=== PATIENT | female | born 1940 | race Caucasian/White ===

== ENCOUNTER → 2023-06-27 11:45 | Outpatient (REF) | payer OTHER, SELFPAY | LOC: HWRAD 11:45 | PROVIDERS: ATTENDING PHYSICIAN Otolaryngology Plastic Surgery within the Head & Neck; FAMILY PHYSICIAN Family Medicine; OTHER PHYSICIAN Physician Assistant; REFERRING PHYSICIAN Otolaryngology | DX: J32.4 Chronic pansinusitis (principal) | CPT/HCPCS: 70486 ==

== ENCOUNTER 2025-02-18 07:50 | Emergency (ER) | payer OTHER, SELFPAY ==
[2025-02-18] VITALS (24 sets, daily range): BP systolic 122–220; BP diastolic 48–136; BMI 22.4
--- NOTE | 2025-02-18 08:16 | ED.GENMED ---
History of Present Illness
<Yasir Frias PA-C - Last Filed: 02/18/25 14:02>
General
Chief Complaint: Headache
Source: patient and family
Time Seen by Provider: 02/18/25 07:53
History of Present Illness
History of Present Illness:
84-year-old female with past medical history of hypertension, hyperlipidemia and migraines presenting to the ER for evaluation for what she states is a moderate to severe posterior headache, started approximately 1 hour prior to arrival to the
emergency department, constant throbbing sensation that started after she had already awoken and was getting ready to go on a walk outside. Patient states this did cause her to have 1 episode of nonbloody nonbilious emesis and mild nausea, patient
was having a bowel movement at the time of the onset. She notes she has a history of migraines but states this is very different than her typical migraine headache. She denies any use of anticoagulants. Denies any falls or traumatic injuries, no
focal weakness or numbness.
Past History
<Yasir Frias PA-C - Last Filed: 02/18/25 14:02>
Past History
ED Past Medical History: GERD, HTN, Hypercholesterolemia and Other (IBS, hiatal hernia)
ED Past Surgical History: Other (Rhinoplasty, chin implant)
Social History
Tobacco: Non-smoker
Alcohol: None
Drug: None
Personal:
Living: with family
Employment: Retired
Family History
Family History: Other (Noncontributory)
Review of Systems
<Yasir Frias PA-C - Last Filed: 02/18/25 14:02>
Review of Systems
All Other Systems: ROS reviewed and negative except as documented in HPI and ROS
Phy Exam
<Yasir Frias PA-C - Last Filed: 02/18/25 14:02>
Physical Exam
Physical Exam:
GENERAL: Alert , in no apparent distress but does appear mildly uncomfortable
HEAD: Normocephalic atraumatic
EYE: conjunctiva clear
NECK: Supple, no meningismus
ENT: o/p clr, mmm.
CARDIAC: Regular rate and rhythm
LUNGS: Clear breath sounds bilaterally, no acute respiratory distress, no wheezes/rales/rhonchi
NEUROLOGICAL: Alert and oriented x 3, answering questions appropriately, moves all extremities, no focal weakness or numbness appreciated. No dysmetria or dysarthria, no aphasia
SKIN: Warm and dry, skin intact.
MUSCULOSKELETAL: well perfused.
PSYCH: Normal and appropriate interaction.
Scores
<Yasir Frias PA-C - Last Filed: 02/18/25 14:02>
NIH Stroke Score
Level of Consciousness: 0 - Alert
LOC Questions: 0-Answers both correctly
LOC Commands: 0-Performs both correctly
Best Horizontal Gaze: 0-Normal
Visual Power: 0=Normal, no visual loss
Facial Palsy: 0=Normal, symmetrical
Motor - Right Arm: 0=No drift 10 seconds
Motor - Left Arm: 0=No drift 10 seconds
Motor - Right Le-No drift 5 seconds
Motor - Left Le-No drift 5 seconds
Limb Ataxia: 0-Absent
Sensation: 0-Normal
Best Language: 0-No aphasia
Dysarthria: 0-Normal
Extinction and Inattention: 0-No abnormality
NIH Total Score:: 0
Heart Failure Risk
Heart Failure Risk Score: Not Applicable
Heart Score for Chest Pain Patients
STEMI patient?: Not applicable
Withdrawal Assessment of Alcohol
Withdrawal Assessment Completed?: Not applicable
Course
<Yasir Frias PA-C - Last Filed: 02/18/25 14:02>
Orders/Labs/Results
Orders:
Orders
02/18/25 07:57
CT Head & Neck Angio W/wo IV Urgent
Comment:
Reason For Exam: sudden onset posterior headache
02/18/25 07:59
Basic Metabolic Panel Urgent
Complete Blood Count/With Diff Urgent
PTT Urgent
Prothrombin Time Urgent
02/18/25 08:15
Nicardipine 40 mg/200 ml [Cardene] 40 mg in 200 ml IV PER PROTOCOL
Initial dose in mg/hr, then titrate:: 2.5
Titrate to keep:: SBP 140 - 160 mmHg
Titrate by mg/hr:: 2.5 mg/hr
Frequency of titrations (minutes):: 5-15 minutes
Maximum dose in mg/hr:: 15
Begin to taper infusion when:: Remained at goal for 2hrs
Taper by mg/hr:: 2.5 mg/hr
Frequency of taper (minutes) if patient maintains goal:: every 15-30 minutes
Taper to off?: Yes
If infusion off & no longer maintaining goal:: Contact Provider
02/18/25 09:04
Fentanyl Citrate/Pf [Sublimaze] 50 mcg IV NOW STA
02/18/25 09:13
diazePAM [Valium Injection] 5 mg IV NOW STA
Abnormal Lab Results
02/18/25
07:59
MCHC 32.9 L g/dL
(33.0-37.0)
MPV 11.3 H fL
(7.4-10.4)
Chloride 110 H mmol/L
(98-107)
BUN 27 H mg/dl
(7-17)
Creatinine 1.2 H mg/dL
(0.6-1.0)
Glucose 132 H mg/dl
(70-99)
02/18/25 07:59
02/18/25 07:59
Vital Signs
Initial and Last Documented VS:
Initial Vital Signs
Temp Pulse Resp BP Pulse Ox
97.6 F 72 16 211/78 97
02/18/25 07:52 02/18/25 07:52 02/18/25 07:52 02/18/25 07:52 02/18/25 07:52
Last Documented Vital Signs
Temp Pulse Resp BP Pulse Ox
97.6 F 80 16 145/53 99
02/18/25 07:52 02/18/25 09:55 02/18/25 09:55 02/18/25 09:55 02/18/25 09:55
<Alvaro Abraham, DO - Last Filed: 02/18/25 08:22>
Orders/Labs/Results
Orders:
Orders
02/18/25 07:57
CT Head & Neck Angio W/wo IV Urgent
Comment:
Reason For Exam: sudden onset posterior headache
02/18/25 07:59
Basic Metabolic Panel Urgent
Complete Blood Count/With Diff Urgent
PTT Urgent
Prothrombin Time Urgent
02/18/25 08:15
Nicardipine 40 mg/200 ml [Cardene] 40 mg in 200 ml IV PER PROTOCOL
Initial dose in mg/hr, then titrate:: 2.5
Titrate to keep:: SBP 140 - 160 mmHg
Titrate by mg/hr:: 2.5 mg/hr
Frequency of titrations (minutes):: 5-15 minutes
Maximum dose in mg/hr:: 15
Begin to taper infusion when:: Remained at goal for 2hrs
Taper by mg/hr:: 2.5 mg/hr
Frequency of taper (minutes) if patient maintains goal:: every 15-30 minutes
Taper to off?: Yes
If infusion off & no longer maintaining goal:: Contact Provider
02/18/25 09:04
Fentanyl Citrate/Pf [Sublimaze] 50 mcg IV NOW STA
02/18/25 09:13
diazePAM [Valium Injection] 5 mg IV NOW STA
Abnormal Lab Results
02/18/25
07:59
MCHC 32.9 L g/dL
(33.0-37.0)
MPV 11.3 H fL
(7.4-10.4)
Chloride 110 H mmol/L
(98-107)
BUN 27 H mg/dl
(7-17)
Creatinine 1.2 H mg/dL
(0.6-1.0)
Glucose 132 H mg/dl
(70-99)
02/18/25 07:59
02/18/25 07:59
Vital Signs
Initial and Last Documented VS:
Initial Vital Signs
Temp Pulse Resp BP Pulse Ox
97.6 F 72 16 211/78 97
02/18/25 07:52 02/18/25 07:52 02/18/25 07:52 02/18/25 07:52 02/18/25 07:52
Last Documented Vital Signs
Temp Pulse Resp BP Pulse Ox
97.6 F 80 16 145/53 99
02/18/25 07:52 02/18/25 09:55 02/18/25 09:55 02/18/25 09:55 02/18/25 09:55
<Yasir Frias PA-C - Last Filed: 02/18/25 14:02>
MDM/Problems Addressed
Differential Diagnosis Includes:
Subarachnoid hemorrhage
Subdural hemorrhage
Migraine headache
Tension headache
Malignancy
Meningitis
Hypertension
MDM/Problems Addressed:
84-year-old female presenting to the emergency department for evaluation of a rather sudden onset headache accompanied with 1 episode of nonbloody nonbilious emesis, currently no nausea. Found to be significantly hypertensive, no focal neurologic
deficits on exam. Given description of headache combined with age and significantly elevated blood pressure a stat CT of the head as well as CTA head and neck were ordered. I did not call a stroke alert given patient's NIH score is 0 and she is
without any focal or lateralizing symptoms but did contact CT scan to bring patient over for stat CT imaging given my degree of concern for intracranial bleeding. I did accompany the patient to CT scan which did seem to show findings concerning for
subarachnoid hemorrhage. Radiologist notified as well. Plan to transfer to tertiary facility for further care.
<Yasir Frias PA-C - Last Filed: 02/18/25 14:02>
*Radiology
Radiology exam reviewed: preliminary read by ED provider and radiology read reviewed
*Pulse Oximetry
SaO2: 97
Oxygen Mode of Delivery: Room air
Patient hypoxic: no
*Academic Intern Interpretation
Rate: normal
Heart Rate: 87
Rhythm: sinus
*Critical Care Note
Total Time (30-74mins, 75-104mins- exclusive of procedures): 34
comment:
Critical care statement: A total of 34 minutes of critical care time was provided for this patient. This includes management of unstable vital signs, evaluation of the patient at bedside, reviewing the patient's pertinent medical records, discussion
with consultants, review of old EKGs and review of pertinent medical records. This time with separate from time utilized to perform the aforementioned documented procedures
<Yasir Frias PA-C - Last Filed: 02/18/25 14:02>
Patient Management
Discussion with other providers: Crumb Packer and Radiologist
Escalation/DeEscalation of care consider admission/obs:
Radiology team confirms concern for subarachnoid hemorrhage. I spoke to neurosurgery and the neuro ICU at [facility], Dr. Martin, accepts patient in transfer. Nicardipine drip ordered, keep systolic blood pressure less
than 140. Patient declining anything for headache/pain or nausea at this time. Awaiting transfer team arrival
ED Attending Note
<Yasir Frias PA-C - Last Filed: 02/18/25 14:02>
-
Portions of this chart may have been created with voice recognition software.� Occasional wrong word or��sound alike� substitutions may have occurred due to the inherent limitations of voice recognition software.
<Alvaro Abraham, DO - Last Filed: 02/18/25 08:22>
ED Attending Note
Patient seen and examined by attending physician: Yes
I performed the substantive portion of visit, reviewed & personally made and approve the management plan that is documented in note by myself or SHARRON.: Yes
ED Attending Note:
I agree with José's note
Patient presents for evaluation after developing a headache which is severe about 1 hour ago. Patient denies any focal weakness numbness or tingling. She does not take any aspirin nor does she take any oral anticoagulants.
General: Awake, Alert, Oriented X3. Appears uncomfortable
Vitals: unremarkable
Head: Atraumatic
Eyes: Pupils equal, EOMI
Throat: Airway intact, no exudates
Neck: Trachea midline
Lungs: Clear and equal b/l
Heart: Regular rate, no murmurs
Abd: Soft, Nontender, No pulsatile mass
Neuro: Cranial nerves intact, muscle strength equal bilaterally, cerebellar exam normal
Skin: Warm, dry, no rash
Extremities: pulses equal b/l, no edema
Patient presents with sudden onset severe headache. CT shows subarachnoid hemorrhage. Blood pressure significantly elevated. Nicardipine drip ordered. Meds speaking to the transfer center to arrange transfer to [place].
Discharge Plan
Departure
Patient Disposition: Acute Care Hospital
Date of Disposition: 02/18/25
Time of Disposition: 08:22
Patient with high blood pressure during this ER visit?: Yes
Discharge Problem:
Subarachnoid hemorrhage
Prescriptions:
No Action
latanoprost 0.005 % Drops
1 drp BOTH EYES HS
polyethylene glycol 3350 [Miralax] 17 gram Powder In Packet
17 g PO DAILYPRN PRN (Reason: CONSTIPATION)
cyanocobalamin (vitamin B-12) 1,000 mcg Tablet
1,000 mcg PO DAILY
gabapentin 300 mg Capsule
300 mg PO HS
verapamil 240 mg Tablet Extended Release
240 mg PO DAILY
gabapentin 100 mg Capsule
100 mg PO DAILY
gabapentin 100 mg Capsule
200 mg PO DAILY@1200
losartan 100 mg Tablet
100 mg PO DAILY
cholecalciferol (vitamin D3) [Vitamin D3] 25 mcg (1,000 unit) Tablet
25 mcg PO DAILY
Visbiome 112.5 billion cell Capsule
1 cap PO DAILY
Referrals:
Galdino Resendez MD [Family Provider, Family Practice]
Hospital Transfer
Other hospital: [facility]
I certify that the patient requires transfer: Yes
Discussed case with accepting physician: Dr. Martin
Reason for transfer: higher level of care, medical necessity and specialties available
Interventions
Interventions:
*Risk Screen - Suicide Last Done: 02/18/25 07:52
*General Assessment Last Done: 02/18/25 07:52
*Neglect/Abuse Screening Last Done: 02/18/25 07:52
*ED- Fall Risk Assessment Last Done: 02/18/25 08:23
*ED COVID-19 Vaccine History Last Done: 02/18/25 08:23
*ED Influenza Vaccine History Last Done: 02/18/25 07:52
*Nursing Disposition Last Done: 02/18/25 10:00
ED- Neurological Assessment Last Done: 02/18/25 08:23
Discharge Date and Time
Discharge Date/Time: 02/18/25 10:00
Print Language: CROATIAN
[2025-02-18 08:18] LABS: Hematocrit 39.5 % (37.0-47.0); Hemoglobin 13.0 g/dL (12.0-16.0); Mean Corp Hgb Conc. 32.9 g/dL (33.0-37.0); Mean Corpuscular Volume 88.4 fL (81.0-99.0); Nucleated Red Blood Cells % 0 %; Platelet Count 249 10^3/uL (130-400); Red Cell Dist. Width 13.2 % (11.5-14.5)
[2025-02-18] MEDS: CARDENE 200 IV (08:19)
[2025-02-18 08:21] LABS: INR 0.89; PT 12.4 Sec (11.4-14.6)
[2025-02-18 08:22] LABS: APTT 27.6 Sec (23.4-35.0)
[2025-02-18 08:26] LABS: Blood Urea Nitrogen 27 mg/dl (7-17); Calcium 9.6 mg/dl (8.4-10.2); Carbon Dioxide 24 mmol/L (22-30); Chloride 110 mmol/L (98-107); Estimated Creatinine Clearance 31 ml/min; Glucose 132 mg/dl (70-99); Potassium 3.8 mmol/L (3.5-5.1); Sodium 141 mmol/L (135-145); eGFR 44.64
[2025-02-18] MEDS: VALIUM INJECTION 5 MG IV (09:18)
[2025-02-18] MEDS: SUBLIMAZE 50 MCG IV (09:57)
== END 2025-02-18 10:00 | disposition short-term general hospital (02) ==
LOC: EMR 07:50
PROVIDERS: Physician Assistant Medical; EMERGENCY PHYSICIAN Emergency Medicine; FAMILY PHYSICIAN Family Medicine
DX: I60.9 Nontraumatic subarachnoid hemorrhage, unspecified (principal); I10 Essential (primary) hypertension; E78.00 Pure hypercholesterolemia, unspecified
CPT/HCPCS: 96365; 96366; 96375; 99291; 70496; 70498; 80048; 85025; 85610; 85730; Q9967